=== PATIENT | female | born 1955 | race Native Hawaiian/Other Pacific Islander ===

== ENCOUNTER 2018-12-30 15:19 | Emergency (ER) | payer SELFPAY ==
--- NOTE | 2018-12-30 16:41 | Event Note ---
ED Screening Note ED Screening Note: pt states she had a fall states she did split, slipped c/o right knee pain, left lower back pain This initial assessment/diagnostic orders/clinical plan/treatment(s) is/are subject to change based on patients health status, clinical progression and re- assessment by fellow clinical providers in the ED. Further treatment and workup at subsequent clinical providers discretion. Patient/guardian urged not to elope from the ED as their condition may be serious if not clinically assessed and managed. Initial orders include: XR of the right knee, L-spine, and pelvis
--- NOTE | 2018-12-30 17:33 | XRay Report ---
RIGHT KNEE 3 VIEW(S) INDICATION / CLINICAL INFORMATION: fall, right knee pain COMPARISON: None available. FINDINGS: BONES / JOINT(S): No acute fracture or subluxation. No significant arthritis. SOFT TISSUES: No significant abnormality. ADDITIONAL FINDINGS: None. Signer Name: Agusto Baltazar MD Signed: 12/30/2018 5:28 PM Workstation Name: [id number]
--- NOTE | 2018-12-30 17:34 | XRay Report ---
LEFT HIP 2 VIEW(S) INDICATION / CLINICAL INFORMATION: fall, left sided buttock pain COMPARISON: None available. FINDINGS: AP Pelvis, AP and frog-leg lateral views of the hip are reviewed. BONES / JOINT(S): No acute fracture or subluxation. No significant arthritis. SOFT TISSUES: No acute finding. Scattered, round soft tissue calcifications project over the hips and pelvis. Signer Name: Agusto Baltazar MD Signed: 12/30/2018 5:30 PM Workstation Name: [id number]
--- NOTE | 2018-12-30 17:34 | XRay Report ---
LUMBAR SPINE 3 VIEWS INDICATION: Low back pain after fall. COMPARISON: No relevant prior imaging study available. FINDINGS: VERTEBRAE: No acute fracture. Normal alignment. DISC SPACES: There are generalized mild discogenic degenerative changes. FACET JOINTS: Generalized facet hypertrophy is present. SOFT TISSUES: No significant abnormality. ADDITIONAL FINDINGS: No additional significant findings. IMPRESSION: 1. No acute abnormality of the lumbar spine. 2. Mild lumbar spondylosis. Signer Name: Frederic Hernandez MD Signed: 12/30/2018 5:29 PM Workstation Name: [id number]
--- NOTE | 2018-12-30 18:14 | Emergency Department Report ---
ED Fall HPI - General Chief Complaint: Extremity Injury, Lower Stated Complaint: FALL RT KNEE LT HIP PAIN Time Seen by Provider: 12/30/18 16:39 Source: patient Mode of arrival: Ambulatory - History of Present Illness Initial Comments: 63-year-old female presents to the emergency room status post fall with complaint of right knee right hip pain. Patient states that she slipped and did a split and hit her right knee to the concrete. Patient reports that she was able to finish her job at this happened at 10:15 this morning. Patient did not take any pain medication. 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, by bystander Place Fall Occurred: work Loss of Consciousness: none Prolonged Down Time?: no Symptoms Prior to Fall: none Location - Extremities: Left: Leg (hip), Right: Knee Severity scale (0 -10): 6 Quality: aching Context: tripped/slipped Associated Symptoms: denies - Related Data Allergies Allergy/AdvReac Type Severity Reaction Status Date / Time aspirin AdvReac Hives Verified 12/30/18 15:44 ED Review of Systems ROS: Stated complaint: FALL RT KNEE LT HIP PAIN Other details as noted in HPI Comment: All other systems reviewed and negative ED Past Medical Hx - Past Medical History Hx Asthma: Yes - Surgical History Additional Surgical History: - Social History Smoking Status: Never Smoker Substance Use Type: Alcohol ED Physical Exam - General Limitations: No Limitations General appearance: alert, in no apparent distress - Head Head exam: Present: atraumatic, normocephalic - Eye Eye exam: Present: normal appearance - ENT ENT exam: Present: mucous membranes moist - Neck Neck exam: Present: full ROM - Extremities Exam Extremities exam: Present: full ROM ED Course Vital Signs 12/30/18 15:27 Temperature 98.4 F Pulse Rate 66 Respiratory 19 Rate Blood Pressure 131/66 O2 Sat by Pulse 98 Oximetry ED Medical Decision Making - Radiology Data Radiology results: report reviewed Patient: TANO STROUD MR#: [id number] : 1955 Acct:[id number] Age/Sex: 63 / F ADM Date: 12/30/18 Loc: ED Attending Dr: Ordering Physician: ERIK REDDING Date of Service: 12/30/18 Procedure(s): XR spine lumbosacral 2-3V Accession Number(s): [id number] cc: ERIK REDDING Fluoro Time In Minutes: LUMBAR SPINE 3 VIEWS INDICATION: Low back pain after fall. COMPARISON: No relevant prior imaging study available. FINDINGS: VERTEBRAE: No acute fracture. Normal alignment. DISC SPACES: There are generalized mild discogenic degenerative changes. FACET JOINTS: Generalized facet hypertrophy is present. SOFT TISSUES: No significant abnormality. ADDITIONAL FINDINGS: No additional significant findings. IMPRESSION: 1. No acute abnormality of the lumbar spine. 2. Mild lumbar spondylosis. Signer Name: Frederic Hernandez MD Signed: 12/30/2018 5:29 PM Workstation Name: [id number] Transcribed By: CLARA Dictated By: Frederic Hernandez MD Electronically Authenticated By: Frederic Hernandez MD Signed Date/Time: 12/30/181728 DD/ 27 TD/TT: Patient: TANO STROUD MR#: [id number] : 1955 Acct:[id number] Age/Sex: 63 / F ADM Date: 12/30/18 Loc: ED Attending Dr: Ordering Physician: ERIK REDDING Date of Service: 12/30/18 Procedure(s): XR knee 3V RT Accession Number(s): [id number] cc: ERIK REDDING Fluoro Time In Minutes: RIGHT KNEE 3 VIEW(S) INDICATION / CLINICAL INFORMATION: fall, right knee pain COMPARISON: None available. FINDINGS: BONES / JOINT(S): No acute fracture or subluxation. No significant arthritis. SOFT TISSUES: No significant abnormality. ADDITIONAL FINDINGS: None. Signer Name: Agusto Baltazar MD Signed: 12/30/2018 5:28 PM Workstation Name: [id number] Transcribed By: [email or web address] Dictated By: Agusto Baltazar MD Electronically Authenticated By: Agusto Baltazar MD Signed Date/Time: 12/30/181727 DD/ 27 TD/TT: Critical care attestation.: If time is entered above; I have spent that time in minutes in the direct care of this critically ill patient, excluding procedure time. ED Disposition Clinical Impression: Fall, Back pain, Acute knee pain Disposition: DC-01 TO HOME OR SELFCARE Is pt being admited?: No Does the pt Need Aspirin: No Condition: Stable Instructions: Fall Prevention (ED) Additional Instructions: You can take Tylenol or ibuprofen as needed for pain management. Follow up with orthopedic if her symptoms persist or gets worse. Referrals: [facility] [Provider Group] - 3-5 Days
[2018-12-30 19:39] VITALS: BP 140/72
== END 2018-12-30 19:39 | disposition home or self-care (01) ==
LOC: ED 15:19
DX: M25.561 Pain in right knee (principal); M25.551 Pain in right hip; M54.5 Low back pain; J45.909 Unspecified asthma, uncomplicated; Z79.82 Long term (current) use of aspirin; W01.0XXA Fall on same level from slipping, tripping and stumbling without subsequent striking against object, initial encounter; Y93.89 Activity, other specified; Y92.89 Other specified places as the place of occurrence of the external cause; Y99.8 Other external cause status
CPT/HCPCS: 72100